=== PATIENT | male | born 1990 | race Caucasian/White ===

== ENCOUNTER → 2022-03-29 11:20 | Outpatient (CLI) | payer BC, SELFPAY ==
[2022-03-29 14:06] LABS: Influenza A - CEPHEID Flu A NEGATIVE (NEGATIVE); Influenza B - CEPHEID Flu B NEGATIVE (NEGATIVE)
[2022-03-29 14:23] LABS: COVID-19 CEPHEID PCR (VTM/NP) Negative (Negative)
== END ==
PROVIDERS: Referring Provider Physician Assistant; Visit Provider Physician Assistant
DX: B34.9 Viral infection, unspecified (principal)
CPT/HCPCS: 0240U; 36415

== ENCOUNTER 2023-03-27 05:56 | Emergency (ER) | payer BC, SELFPAY ==
--- NOTE | 2023-03-27 05:58 | ED_ITS ---
HPI - Abdominal Pain <Tirso Rg DO - Last Filed: 03/28/23 03:17> General Chief Complaint: Nausea/Vomiting/Diarrhea Stated Complaint: abd pain, n/v/d Time Seen by Provider: 03/27/23 05:58 History of Present Illness HPI narrative: 32-year-old male nonsmoker, nondrinker with no chronic medical problems presents with a chief complaint of multiple episodes of nausea and vomiting with associated epigastric pain over the course of the night. His is beginning to get rather similar symptoms and they question whether not he may have eaten some bad hamburger. He denies fever or chills and admits to loose stools but not specifically diarrhea. He states the pain is rather persistent but does seem to have episodes that the pain intensifies without obvious provocation. He states he became nauseated 1st and then developed some vomiting followed by the pain. He denies any radiation of the pain nor obvious palliation. He denies any history of the same. Related Data Previous Rx's Medication Instructions Recorded ondansetron 4 mg disintegrating 4 mg PO Q8H PRN nausea and 03/27/23 tablet vomiting #10 tabs Allergies Allergy/AdvReac Type Severity Reaction Status Date / Time No Known Drug Allergies Allergy Unverified 03/29/22 10:51 Review of Systems <Tirso Rg DO - Last Filed: 03/28/23 03:17> Review of Systems Narrative: GENERAL: See HPI HEENT: Denies sinus pain, ear pain, sore throat, difficulty swallowing, dizzines s. RESPIRATORY: Denies dyspnea, cough, wheezing, hemoptysis, sputum. CARDIOVASCULAR: Denies chest pain, palpitations, orthopnea, edema, GASTROINTESTINAL: See HPI : Denies dysuria, frequency, incontinence, hematuria, urinary retention. MUSCULOSKELETAL: denies weakness, joint pain, or bony pain SKIN: Denies rash, skin lesions, or other NEUROLOGIC: Denies weakness, headache, numbness, change in speech, confusion, seizures, incoordination. PSYCHIATRIC: No concerning psychosocial issues. 12 point review of systems is negative except for those stated above Patient History <Tirso Rg DO - Last Filed: 03/28/23 03:17> Social History Smoking Status: Current every day smoker Smoking Status: Current every day smoker Exam <DO Indy Monterroso Last Filed: 03/28/23 03:17> Narrative Exam Narrative: GENERAL: [32] year old patient appears stated age. Well-developed patient, in mild distress. HEAD: Atraumatic. Normocephalic. EYES: Pupils equal round and reactive. Extraocular motions intact. No scleral icterus. No injection or drainage. ENT: Nose without bleeding, purulent drainage. Throat without erythema, tonsillar hypertrophy or exudate. Airway patent. NECK: Trachea midline. Non tender CARDIOVASCULAR: Regular rate and rhythm without murmurs, gallops, or rubs. RESPIRATORY: Clear to auscultation. Breath sounds equal bilaterally. No wheezes, rales, or rhonchi. GASTROINTESTINAL: Abdomen soft, tenderness in the epigastrium, nondistended. Bowel sounds present, no guarding EXTREMITIES: No edema or joint tenderness. BACK: Nontender without deformity or crepitance. No flank tenderness. NEURO: AOx3. SKIN: No rash or erythema of visible areas Initial Vital Signs Initial Vital Signs: Vital Signs Temperature 97.3 F L 03/27/23 06:04 Pulse Rate 78 03/27/23 06:04 Respiratory Rate 16 03/27/23 06:04 Blood Pressure 127/59 L 03/27/23 06:04 Pulse Oximetry 99 03/27/23 06:04 Oxygen Delivery Method Room Air 03/27/23 06:04 <Enid Yuen DO - Last Filed: 03/27/23 19:40> Initial Vital Signs Initial Vital Signs: Vital Signs Temperature 97.3 F L 03/27/23 06:04 Pulse Rate 78 03/27/23 06:04 Respiratory Rate 16 03/27/23 06:04 Blood Pressure 127/59 L 03/27/23 06:04 Pulse Oximetry 99 03/27/23 06:04 Oxygen Delivery Method Room Air 03/27/23 06:04 Course <DO Indy Monterroso Last Filed: 03/28/23 03:17> Orders Ordered: Discontinued Medications Hydromorphone HCl (Hydromorphone 0.5 Mg Inj) 0.5 mg IV NOW ONE Stop: 03/27/23 06:53 Last Admin: 03/27/23 06:58 Dose: 0.5 mg Documented By: SB Lactated Ringer's (Lactated Ringers) 1,000 mls @ 1,000 mls/hr IV BOLUS ONE Stop: 03/27/23 07:10 Last Infusion: 03/27/23 08:16 Dose: 0 mls/hr Documented By: Admin: 03/27/23 06:23 Dose: 1,000 mls/hr Documented By: ISIAH Ondansetron HCl (Ondansetron 4 Mg/2 Ml Inj) 4 mg IV NOW ONE Stop: 03/27/23 06:12 Last Admin: 03/27/23 06:21 Dose: 4 mg Documented By: ISIAH Pantoprazole Sodium (Pantoprazole 40 Mg Vial) 40 mg IV NOW ONE Stop: 03/27/23 06:12 Last Admin: 03/27/23 06:21 Dose: 40 mg Documented By: ISIAH Reevaluation(s) Reevaluation #1: minimal if any relief with zofran / protonix. NO findings on abd/US. DIlaudid and CT ordered Time: 06:55 Vital Signs Vital signs: Vital Signs - 8 hr 03/27/23 06:04 03/27/23 08:03 03/27/23 08:04 Temperature 97.3 F L Pulse Rate 78 Respiratory Rate 16 Blood Pressure 127/59 L 114/56 L Pulse Oximetry 99 98 Oxygen Delivery Method Room Air 03/27/23 08:04 Temperature Pulse Rate 72 Respiratory Rate Blood Pressure Pulse Oximetry 98 Oxygen Delivery Method Room Air <Enid Yuen DO - Last Filed: 03/27/23 19:40> Orders Ordered: Discontinued Medications Hydromorphone HCl (Hydromorphone 0.5 Mg Inj) 0.5 mg IV NOW ONE Stop: 03/27/23 06:53 Last Admin: 03/27/23 06:58 Dose: 0.5 mg Documented By: ISIAH Lactated Ringer's (Lactated Ringers) 1,000 mls @ 1,000 mls/hr IV BOLUS ONE Stop: 03/27/23 07:10 Last Infusion: 03/27/23 08:16 Dose: 0 mls/hr Documented By: Admin: 03/27/23 06:23 Dose: 1,000 mls/hr Documented By: ISIAH Ondansetron HCl (Ondansetron 4 Mg/2 Ml Inj) 4 mg IV NOW ONE Stop: 03/27/23 06:12 Last Admin: 03/27/23 06:21 Dose: 4 mg Documented By: ISIAH Pantoprazole Sodium (Pantoprazole 40 Mg Vial) 40 mg IV NOW ONE Stop: 03/27/23 06:12 Last Admin: 03/27/23 06:21 Dose: 40 mg Documented By: ISIAH Vital Signs Vital signs: Vital Signs - 8 hr 03/27/23 06:04 03/27/23 08:03 03/27/23 08:04 Temperature 97.3 F L Pulse Rate 78 Respiratory Rate 16 Blood Pressure 127/59 L 114/56 L Pulse Oximetry 99 98 Oxygen Delivery Method Room Air 03/27/23 08:04 Temperature Pulse Rate 72 Respiratory Rate Blood Pressure Pulse Oximetry 98 Oxygen Delivery Method Room Air MDM - Abdominal Pain <Tirso Rg DO - Last Filed: 03/28/23 03:17> Lab Data 03/27/23 06:18 03/27/23 06:18 Labs: Lab Results 03/27/23 03/27/23 Range/Units 06:18 06:18 WBC 8.9 (4.5-11.0) X10^3/uL RBC 5.95 H (4.5-5.9) X10^6/uL Hgb 17.4 (13.5-17.5) g/dL Hct 48.7 (41-53) % MCV 81.8 (80-100) fL MCH 29.3 (26-34) PG MCHC 35.8 (30-36) % RDW 12.7 (11.6-14.8) % Plt Count 265 (150-400) X10^3/uL Neut % (Auto) 91.3 H (50-75) % Lymph % (Auto) 3.6 L (25-40) % Redwood % (Auto) 4.4 (3-14) % Eos % (Auto) 0.2 L (2-4) % Baso % (Auto) 0.5 (0-2) % Neut # (Auto) 8200 H (2982-3572) /uL Lymph # (Auto) 300 L (7163-0109) /uL Redwood # (Auto) 400 (0-900) /uL Eos # (Auto) 0 (0-450) /uL Baso # (Auto) 0 (0-100) /uL Sodium 139 (137-145) mmol/L Potassium 3.7 (3.4-5.1) mmol/L Chloride 104 (98-107) mmol/L Carbon Dioxide 24 (22-32) mmol/L BUN 16 (9-20) mg/dL Creatinine 0.72 (0.66-1.25) mg/dL Estimated GFR > 60 (>60) mL/min BUN/Creatinine Ratio 22.2 H (6-22) Glucose 172 H (70-100) mg/dL Calcium 9.1 (8.4-10.2) mg/dL Total Bilirubin 1.6 H (0.2-1.3) mg/dL AST 34 (17-59) IU/L ALT 44 (<50) IU/L Alkaline Phosphatase 70 (38-126) U/L Total Protein 7.6 (6.3-8.2) g/dL Albumin 4.7 (3.5-5.0) g/dL Globulin 2.9 (1.7-4.1) g/dL Albumin/Globulin Ratio 1.6 (1.0-2.8) Lipase 72 (23-300) U/L <Enid Yuen, DO - Last Filed: 03/27/23 19:40> Lab Data Labs: Lab Results 03/27/23 03/27/23 Range/Units 06:18 06:18 WBC 8.9 (4.5-11.0) X10^3/uL RBC 5.95 H (4.5-5.9) X10^6/uL Hgb 17.4 (13.5-17.5) g/dL Hct 48.7 (41-53) % MCV 81.8 (80-100) fL MCH 29.3 (26-34) PG MCHC 35.8 (30-36) % RDW 12.7 (11.6-14.8) % Plt Count 265 (150-400) X10^3/uL Neut % (Auto) 91.3 H (50-75) % Lymph % (Auto) 3.6 L (25-40) % Redwood % (Auto) 4.4 (3-14) % Eos % (Auto) 0.2 L (2-4) % Baso % (Auto) 0.5 (0-2) % Neut # (Auto) 8200 H (5031-4261) /uL Lymph # (Auto) 300 L (9000-0217) /uL Redwood # (Auto) 400 (0-900) /uL Eos # (Auto) 0 (0-450) /uL Baso # (Auto) 0 (0-100) /uL Sodium 139 (137-145) mmol/L Potassium 3.7 (3.4-5.1) mmol/L Chloride 104 (98-107) mmol/L Carbon Dioxide 24 (22-32) mmol/L BUN 16 (9-20) mg/dL Creatinine 0.72 (0.66-1.25) mg/dL Estimated GFR > 60 (>60) mL/min BUN/Creatinine Ratio 22.2 H (6-22) Glucose 172 H (70-100) mg/dL Calcium 9.1 (8.4-10.2) mg/dL Total Bilirubin 1.6 H (0.2-1.3) mg/dL AST 34 (17-59) IU/L ALT 44 (<50) IU/L Alkaline Phosphatase 70 (38-126) U/L Total Protein 7.6 (6.3-8.2) g/dL Albumin 4.7 (3.5-5.0) g/dL Globulin 2.9 (1.7-4.1) g/dL Albumin/Globulin Ratio 1.6 (1.0-2.8) Lipase 72 (23-300) U/L Imaging Data CT scan - abdomen/pelvis: Radiologist's Impression: PROCEDURE:? CT ABDOMEN PELVIS W CON ? INDICATIONS:? severe abdominal pain N/V ? TECHNIQUE:? After the administration of oral and intravenous contrast, axial sections were acquired from the lung bases to the pubic symphysis.? Coronal and sagittal reformats were performed.? For radiation dose reduction, the following was used:? automated exposure control, adjustment of mA and/or kV according to patient size.? ? COMPARISON:None. ? FINDINGS:? Image quality:? Excellent.? ? Lung bases:? Unremarkable.? ? Heart:? No significant findings. ? ? ABDOMEN: Liver:? Unremarkable.? ? Gallbladder:? Unremarkable.? ? Biliary ducts:? Unremarkable.? ? Pancreas:? Unremarkable.? ? Spleen:? Unremarkable.? ? Adrenal Glands:? Unremarkable.? ? Kidneys and Ureters:? Unremarkable.? ? ? Stomach and Bowel:? Gastric rugae appear prominent.? Normal colonic caliber.? P rominent mesenteric vessels. Peritoneum:? No abnormal intraperitoneal fluid.? No free air.? ? Ventral Wall: ? No hernia.? Abdominal Nodes:? No retroperitoneal or mesenteric adenopathy by size criteria.? Vessels:? Aorta and inferior vena cava are normal in size.? ? PELVIS: Pelvic Organs:? Unremarkable.? ? Bladder:? Unremarkable.? ? Pelvic Nodes: No enlarged lymph nodes.? Miscellaneous: No inguinal hernias are seen. ? ? ? Bones:? Unremarkable.? ? ? IMPRESSION:? ? Gastric rugae appear prominent, which may indicate gastritis. ? Prominent mesenteric vasculature, which is a soft marker for enteritis.? ? ? No major discrepancies with the preliminary report, although there is no mention of possible gastritis. ? Dictated by: Ezra Ty M.D. on 03/27/2023 at 8:05 ? ? US - abdomen: Radiologist's Impression: PROCEDURE:? US ABDOMEN LIMITED ? INDICATIONS:? epigastric pain, N/V ? TECHNIQUE:? Real-time scanning was performed of the abdominal and retroperitoneal organs, with image documentation.? ? COMPARISON:? None. ? FINDINGS:? ? Liver:? Liver is normal in size and homogeneous in echotexture.? ? Gallbladder:? Unremarkable.? ? Biliary ducts:? Intrahepatic bile ducts are non-dilated.? Extrahepatic bile duct caliber measures 4.7 mm.? Normal is 6-7 mm or less in diameter, or 10 mm or less post-cholecystectomy.? ? Pancreas:? Visualized portions of the pancreas are sonographically normal.? ? IMPRESSION:? Unremarkable right upper quadrant ultrasound.? Normal gallbladder. ? Dictated by: Ezra Ty M.D. on 03/27/2023 at 8:04 ? MDM Narrative Medical decision making narrative: Patient signed out to me by Dr. Rg I have seen evaluated patient myself. Overall feeling better describes nausea vomiting abdominal pain that started last night. Pain seems to be much better. Imaging CT and ultrasound do not show any etiology probably a gastroenteritis. Blood work does not show any leukocytosis or anemia, no electrolyte abnormality or ELLIOTT. Mild elevation in bilirubin of 1.6 ultrasound negative. Suspect a gastro enteritis. Discussed oral rehydration technique. Discharge Plan Departure Patient Disposition: Home Clinical Impression: Gastroenteritis Instructions: DI for Viral Gastroenteritis -- Adult Activity Restrictions/Additional Instructions: *You have been diagnosed with gastroenteritis *What to do: Increase fluids as tolerated recommend sublingual sugar and salt. *Continue to take medications as directed Zofran 4 mg every 8 hours if needed for nausea or vomiting --> SENT TO [facility] Tylenol 1000 mg every 6 hours if needed for pain *Follow up with your primary care provider in 2-3 days or call [phone] *Return to ER if you should have seeing pain persistent vomiting, diarrhea, dizziness lightheadedness passing or any new, worsening or concerning symptoms Prescriptions: New ondansetron 4 mg tablet,disintegrating 4 mg PO Q8H PRN (Reason: nausea and vomiting) Qty: 10 0RF Referrals: Miscellaneous,Doctor, MD [Primary Care Provider] - Stand Alone Forms: Patient Portal/API
[2023-03-27 06:04] VITALS: BP 127/59; PULSE 78; RESP 16; TEMP 36.3; O2SAT 99; BMI 25.1
--- NOTE | 2023-03-27 06:11 | DI.US.S_ITS ---
PROCEDURE: US ABDOMEN LIMITED INDICATIONS: epigastric pain, N/V TECHNIQUE: Real-time scanning was performed of the abdominal and retroperitoneal organs, with image documentation. COMPARISON: None. FINDINGS: Liver: Liver is normal in size and homogeneous in echotexture. Gallbladder: Unremarkable. Biliary ducts: Intrahepatic bile ducts are non-dilated. Extrahepatic bile duct caliber measures 4.7 mm. Normal is 6-7 mm or less in diameter, or 10 mm or less post-cholecystectomy. Pancreas: Visualized portions of the pancreas are sonographically normal. IMPRESSION: Unremarkable right upper quadrant ultrasound. Normal gallbladder. Dictated by: Ezra Ty M.D. on 03/27/2023 at 8:04 Approved by: Ezra Ty M.D. on 03/27/2023 at 8:05
[2023-03-27] MEDS: ONDANSETRON 4 MG/2 ML INJ IV (06:21)
[2023-03-27] MEDS: PANTOPRAZOLE 40 MG VIAL IV (06:21)
[2023-03-27] MEDS: LACTATED RINGERS 1,000 ML 1000 ML IV (06:23)
[2023-03-27 06:28] LABS: Add Manual Diff / Slide Review NO; Basophils Absolute Auto 0 /uL (0-100); Basophils Percent Auto 0.5 % (0-2); Eosinophils Absolute Auto 0 /uL (0-450); Eosinophils Percent Auto 0.2 % (2-4); Hematocrit 48.7 % (41-53); Hemoglobin 17.4 g/dL (13.5-17.5); Lymphocytes Absolute Auto 300 /uL (1100-4500); Lymphocytes Percent Auto 3.6 % (25-40); Mean Corpuscular HGB Conc 35.8 % (30-36); Mean Corpuscular Hemoglobin 29.3 PG (26-34); Mean Corpuscular Volume 81.8 fL (80-100); Monocytes Absolute Auto 400 /uL (0-900); Monocytes Percent Auto 4.4 % (3-14); Neutrophils Absolute Auto 8200 /uL (1500-7000); Neutrophils Percent Auto 91.3 % (50-75); Platelet Count 265 X10^3/uL (150-400); Red Blood Cell Count 5.95 X10^6/uL (4.5-5.9); Red Cell Distribution Width 12.7 % (11.6-14.8); White Blood Cell Count 8.9 X10^3/uL (4.5-11.0)
[2023-03-27 06:41] LABS: Alanine Aminotransferase 44 IU/L (<50); Albumin 4.7 g/dL (3.5-5.0); Albumin Globulin Ratio 1.6 (1.0-2.8); Alkaline Phosphatase 70 U/L (38-126); Aspartate Aminotransferase 34 IU/L (17-59); BUN Creatinine Ratio 22.2 (6-22); Bilirubin Total 1.6 mg/dL (0.2-1.3); Blood Urea Nitrogen 16 mg/dL (9-20); Calcium 9.1 mg/dL (8.4-10.2); Carbon Dioxide 24 mmol/L (22-32); Chloride 104 mmol/L (98-107); Estimated Glomerular Filt Rate > 60 mL/min (>60); Globulin 2.9 g/dL (1.7-4.1); Glucose 172 mg/dL (70-100); HEMOLYSIS < 15 (0-50); Lipase 72 U/L (23-300); Potassium 3.7 mmol/L (3.4-5.1); Sodium 139 mmol/L (137-145); Total Protein 7.6 g/dL (6.3-8.2)
--- NOTE | 2023-03-27 06:52 | DI.CT.S_ITS ---
PROCEDURE: CT ABDOMEN PELVIS W CON INDICATIONS: severe abdominal pain N/V TECHNIQUE: After the administration of oral and intravenous contrast, axial sections were acquired from the lung bases to the pubic symphysis. Coronal and sagittal reformats were performed. For radiation dose reduction, the following was used: automated exposure control, adjustment of mA and/or kV according to patient size. COMPARISON:None. FINDINGS: Image quality: Excellent. Lung bases: Unremarkable. Heart: No significant findings. ABDOMEN: Liver: Unremarkable. Gallbladder: Unremarkable. Biliary ducts: Unremarkable. Pancreas: Unremarkable. Spleen: Unremarkable. Adrenal Glands: Unremarkable. Kidneys and Ureters: Unremarkable. Stomach and Bowel: Gastric rugae appear prominent. Normal colonic caliber. Prominent mesenteric vessels. Peritoneum: No abnormal intraperitoneal fluid. No free air. Ventral Wall: No hernia. Abdominal Nodes: No retroperitoneal or mesenteric adenopathy by size criteria. Vessels: Aorta and inferior vena cava are normal in size. PELVIS: Pelvic Organs: Unremarkable. Bladder: Unremarkable. Pelvic Nodes: No enlarged lymph nodes. Miscellaneous: No inguinal hernias are seen. Bones: Unremarkable. IMPRESSION: Gastric rugae appear prominent, which may indicate gastritis. Prominent mesenteric vasculature, which is a soft marker for enteritis. No major discrepancies with the preliminary report, although there is no mention of possible gastritis. Dictated by: Ezra Ty M.D. on 03/27/2023 at 8:05 Approved by: Ezra Ty M.D. on 03/27/2023 at 8:09
[2023-03-27] MEDS: HYDROMORPHONE 0.5 MG INJ IV (06:58)
[2023-03-27 08:03] VITALS: O2SAT 98
[2023-03-27 08:04] VITALS: BP 114/56; PULSE 72; O2SAT 98
[2023-03-27 08:30] VITALS: PULSE 79; O2SAT 96
== END 2023-03-27 08:37 | disposition home or self-care (01) ==
PROVIDERS: Emergency Medicine; Emergency Provider Emergency Medicine
DX: K52.9 Noninfective gastroenteritis and colitis, unspecified (principal); R11.2 Nausea with vomiting, unspecified
CPT/HCPCS: 36415; 74177; 76705; 80053; 83690; 85025; 96361; 96374; 96375; 99284; C9113; J1170; J2405